=== PATIENT | female | born 1985 | race Caucasian/White ===

== ENCOUNTER 2020-10-19 08:47 | Outpatient (CLI) | payer OTHER ==
[~2020-10-19 08:47] MED LIST: KETO10TA2 PO
== END 2020-10-19 09:05 | disposition home or self-care (01) ==
LOC: RX STUDY 08:47
PROVIDERS: ATTEND Obstetrics & Gynecology Reproductive Endocrinology
DX: Q52.11 Transverse vaginal septum (principal)

== ENCOUNTER 2022-12-09 08:16 | Outpatient (CLI) | payer OTHER | END 2022-12-09 08:20 | disposition home or self-care (01) | LOC: RAD 08:16 | PROVIDERS: ATTEND Internal Medicine | DX: R10.2 Pelvic and perineal pain (principal); N84.0 Polyp of corpus uteri; M54.6 Pain in thoracic spine ==

== ENCOUNTER 2023-02-20 09:20 | Outpatient (CLI) | payer OTHER | END 2023-02-20 09:24 | disposition home or self-care (01) | LOC: RX STUDY 09:20 | DX: N84.0 Polyp of corpus uteri (principal); N97.9 Female infertility, unspecified ==

== ENCOUNTER 2025-02-18 10:56 | Outpatient (CLI) | payer OTHER | END 2025-02-18 10:57 | disposition home or self-care (01) | LOC: SONOGRAMA 10:56 | DX: E04.9 Nontoxic goiter, unspecified (principal); Z13.29 Encounter for screening for other suspected endocrine disorder ==